=== PATIENT | female | born 1935 | race Caucasian/White ===

== ENCOUNTER → 2017-12-05 | Outpatient (CLI) | payer MEDICARE, OTHER ==
[~2017-12-05] MED LIST: AMLO1TAB PO; APIX2.5T PO; ASCO10004 PO; CHOL200024 PO; DILT120C58 PO; FOLI-17 PO; MAGNESIUM PO; OMNIPAQUE 350 MG/ML, 150 ML BOTTLE ONE; SPIR25TA3 PO; TOFA5TAB PO; TURMERIC PO
== END | disposition home or self-care (01) ==
LOC: CFH 11:01
PROVIDERS: ATTEND Internal Medicine Cardiovascular Disease
DX: J84.10 Pulmonary fibrosis, unspecified (principal); R91.1 Solitary pulmonary nodule; I48.91 Unspecified atrial fibrillation
CPT/HCPCS: 71046; 75572; Q9967

== ENCOUNTER 2017-12-07 06:23 | Observation (INO) | payer MEDICARE, OTHER ==
[2017-12-05 13:13] VITALS: BP 130/68
[~2017-12-07] VITALS: Ht 170.2 cm; Wt 67.0 kg
[~2017-12-07 06:23] MED LIST changes: -ASCO10004 PO; -OMNIPAQUE 350 MG/ML, 150 ML BOTTLE ONE
[2017-12-07] MEDS ORDERED: SODIUM CHLORIDE 0.9% 1,000 ML IV ONE (06:30)
[2017-12-07] MEDS ORDERED: SODIUM CHLORIDE 0.9% 1,000 ML IV SCH (06:40)
[2017-12-07] MEDS ORDERED: ASCO10004 PO (06:59)
[2017-12-07] MEDS ORDERED: HEPARIN 1,000 UNITS/ML, 10ML ONE (07:22)
[2017-12-07] MEDS ORDERED: PROTAMINE SULFATE 10 MG/ML, 5ML ONE (07:22)
[2017-12-07] MEDS ORDERED: LIDOCAINE-MPF 2% ,5ML ONE (07:22)
[2017-12-07] MEDS ORDERED: ISOPROTERENOL 0.2MG/ML, 5ML ONE (07:22)
[2017-12-07] MEDS ORDERED: EPINEPHRINE SYRINGE 0.1 MG/ML, 10ML ONE (07:30)
[2017-12-07] MEDS ORDERED: MIDAZOLAM 1 MG/ML, 2ML ONE (07:39)
[2017-12-07] MEDS ORDERED: FENTANYL PF 100 MCG/2ML ONE (07:39)
[2017-12-07] MEDS ORDERED: DEXAMETHASONE 4 MG/ML, 1ML ONE (07:51)
[2017-12-07] MEDS ORDERED: PROPOFOL 10 MG/ML, 20ML ONE (07:51)
[2017-12-07] MEDS ORDERED: ROCURONIUM 10 MG/ML,10ML ONE (07:51)
[2017-12-07] MEDS ORDERED: ONDANSETRON 2MG/ML, 2ML ONE (07:51)
[2017-12-07] MEDS ORDERED: SUCCINYLCHOLINE 20 MG/ML, 10ML ONE (07:51)
[2017-12-07] MEDS ORDERED: morphine SULFATE 10 MG/ML, 1ML IV PRN (10:30)
[2017-12-07] MEDS ORDERED: ZOLPIDEM 5MG TABLET PO PRN (10:30)
[2017-12-07] MEDS ORDERED: PROMETHAZINE 12.5 MG SUPP PR PRN (10:30)
[2017-12-07] MEDS ORDERED: ACETAMINOPHEN 325 MG TABLET PO PRN ×2 (10:30)
[2017-12-07] MEDS ORDERED: METOCLOPRAMIDE 5 MG/ML, 2ML IV PRN (10:30)
[2017-12-07] MEDS ORDERED: ALBUTEROL SULFATE 2.5 MG/3 ML NPPB PRN (10:30)
[2017-12-07] MEDS ORDERED: LABETALOL 5MG/ML, 20ML IV PRN (10:30)
[2017-12-07] MEDS ORDERED: ONDANSETRON 2MG/ML, 2ML IVPush PRN (10:30)
[2017-12-07] MEDS ORDERED: MIDAZOLAM 1 MG/ML, 2ML IV PRN (10:30)
[2017-12-07] MEDS ORDERED: OXYcodone 5 MG/5 ML ORAL.SOL UDC PO PRN (10:30)
[2017-12-07] MEDS ORDERED: FENTANYL PF 100 MCG/2ML IV PRN (10:30)
[2017-12-07] MEDS ORDERED: MEPERIDINE/PF 25MG/0.5ML IVPush PRN (10:30)
[2017-12-07] MEDS ORDERED: hydrALAzine 20 MG/ML, 1ML IV PRN (10:30)
[2017-12-07] MEDS ORDERED: APIXABAN 5 MG TABLET ONE (10:31)
[2017-12-07] MEDS: APIXABAN 2.5 MG TABLET PO SCH (10:46)
[2017-12-07 11:38] VITALS: BP 123/44
[2017-12-07] MEDS: CHOLECALCIFEROL 1,000 UNIT TABLET PO SCH (12:00)
[2017-12-07] MEDS ORDERED: ATORVASTATIN 10 MG TABLET PO SCH ×2 (12:00→21:00)
[2017-12-07] MEDS ORDERED: AMLODIPINE 5 MG TABLET PO SCH ×2 (12:00→21:00)
[2017-12-07] MEDS: ASCORBIC ACID 500 MG TABLET PO SCH (12:00)
[2017-12-07 14:51] VITALS: BP 98/60
[2017-12-07 18:59] VITALS: BP 108/66
[2017-12-07] MEDS: (Tofacitinib Citrate** (Xeljanz**) 5 MG) HOMEMEDPO SCH (21:11)
[2017-12-08 01:22] VITALS: BP 105/66
[2017-12-08 06:55] VITALS: BP 110/60
[2017-12-08] MEDS: APIXABAN 2.5 MG TABLET PO SCH (08:25)
[2017-12-08] MEDS: ASCORBIC ACID 500 MG TABLET PO SCH (08:26)
[2017-12-08] MEDS: CHOLECALCIFEROL 1,000 UNIT TABLET PO SCH (08:26)
[2017-12-08] MEDS: (Tofacitinib Citrate** (Xeljanz**) 5 MG) HOMEMEDPO SCH (08:26)
[2017-12-08 08:32] VITALS: BP 117/71
[2017-12-08] MEDS ORDERED: SPIRONOLACTONE 25 MG TABLET PO SCH (09:00)
[2017-12-08] MEDS ORDERED: DILTIAZEM 120 MG CAP.ER.24H PO SCH (09:00)
[2017-12-08] MEDS ORDERED: FOLIC ACID 1 MG TABLET PO SCH (09:00)
== END 2017-12-08 10:30 | disposition home or self-care (01) ==
LOC: CACL 06:23 → ORIP 10:05 → 5SO 11:23 → DCLOUNGE 12-08 10:11
PROVIDERS: ADMIT Internal Medicine Cardiovascular Disease; ATTEND Internal Medicine Cardiovascular Disease
DX: I48.4 Atypical atrial flutter (principal); I47.1 Supraventricular tachycardia; E78.5 Hyperlipidemia, unspecified; I10 Essential (primary) hypertension; M06.9 Rheumatoid arthritis, unspecified
CPT/HCPCS: 85347; 93312; 93320; 93325; 93462; 93613; 93621; 93653; 93662; C1730; C1731; C1732; C1759; C1766; C1893; C1894; G0378; J0330; J1100; J1644; J2250; J2405; J2704; J2720; J3010; J3490

== ENCOUNTER 2018-07-14 07:30 | Observation (INO) | payer MEDICARE, OTHER ==
[~2018-07-14] VITALS: Ht 170.2 cm; Wt 65.0 kg
[~2018-07-14 07:30] MED LIST changes: +ASCO10004 PO; -SPIR25TA3 PO; +SPIR25TA5 PO
[2018-07-14] MEDS ORDERED: SODIUM CHLORIDE 0.9% 1,000 ML IV SCH ×2 (08:35→09:00)
[2018-07-14 08:36] VITALS: BP 143/73
[2018-07-14] MEDS ORDERED: PROTAMINE SULFATE 10 MG/ML, 5ML ONE (11:23)
[2018-07-14] MEDS ORDERED: MIDAZOLAM 1 MG/ML, 2ML ONE (11:26)
[2018-07-14] MEDS ORDERED: FENTANYL PF 250 MCG/5ML ONE (11:26)
[2018-07-14] MEDS ORDERED: SUCCINYLCHOLINE 20 MG/ML, 10ML ONE (14:10)
[2018-07-14] MEDS ORDERED: ROCURONIUM 10MG/ML,5ML ONE (14:10)
[2018-07-14] MEDS ORDERED: LIDOCAINE/PF 1%, 30ML ONE (14:25)
[2018-07-14] MEDS ORDERED: ONDANSETRON 2MG/ML, 2ML ONE (14:57)
[2018-07-14] MEDS ORDERED: DEXAMETHASONE 4 MG/ML, 1ML ONE (14:57)
[2018-07-14] MEDS ORDERED: PROPOFOL 10 MG/ML, 20ML ONE (14:57)
[2018-07-14] MEDS ORDERED: ISOPROTERENOL 0.2MG/ML, 5ML ONE (15:39)
[2018-07-14] MEDS ORDERED: ACETAMINOPHEN 325 MG TABLET PO PRN ×2 (17:00→17:30)
[2018-07-14] MEDS ORDERED: ZOLPIDEM 5MG TABLET PO PRN (17:00)
[2018-07-14] MEDS ORDERED: EPHEDRINE 50 MG/ML, 1ML IM PRN (17:30)
[2018-07-14] MEDS ORDERED: MORPHINE SULFATE 4 MG/ML, 1ML IVPush PRN (17:30)
[2018-07-14] MEDS ORDERED: MEPERIDINE/PF 25MG/0.5ML IVPush PRN (17:30)
[2018-07-14] MEDS ORDERED: PROMETHAZINE 25 MG SUPP PR PRN (17:30)
[2018-07-14] MEDS ORDERED: FENTANYL PF 100 MCG/2ML IV PRN (17:30)
[2018-07-14] MEDS ORDERED: OXYcodone 5 MG/5 ML ORAL.SOL UDC PO PRN (17:30)
[2018-07-14] MEDS ORDERED: ONDANSETRON ODT 8 MG PO PRN (17:30)
[2018-07-14] MEDS ORDERED: PROMETHAZINE 12.5 MG SUPP PR PRN (17:30)
[2018-07-14] MEDS ORDERED: DIPHENHYDRAMINE 50 MG/ML, 1ML IVPush PRN (17:30)
[2018-07-14] MEDS ORDERED: MIDAZOLAM 1 MG/ML, 2ML IV PRN (17:30)
[2018-07-14] MEDS ORDERED: ONDANSETRON 2MG/ML, 2ML IV PRN (17:30)
[2018-07-14] MEDS ORDERED: PROMETHAZINE 25 MG/ML, 1ML IV PRN (17:30)
[2018-07-14 19:37] VITALS: BP 145/80
[2018-07-14] MEDS: TEMPLATE NON-FORMULARY MED. (Tofacitinib Citrate** (Xeljanz**) 5 MG) PO SCH (21:00)
[2018-07-14] MEDS ORDERED: ATORVASTATIN 10 MG TABLET PO SCH (21:00)
[2018-07-14] MEDS: APIXABAN 2.5 MG TABLET PO SCH (21:12)
[2018-07-15 01:07] VITALS: BP 106/64
[2018-07-15 07:16] VITALS: BP 119/63
[2018-07-15] MEDS: TEMPLATE NON-FORMULARY MED. (Tofacitinib Citrate** (Xeljanz**) 5 MG) PO SCH (07:49)
[2018-07-15] MEDS ORDERED: FOLIC ACID 1 MG TABLET PO SCH (09:00)
[2018-07-15] MEDS ORDERED: AMLODIPINE 5 MG TABLET PO SCH (09:00)
[2018-07-15] MEDS ORDERED: SPIRONOLACTONE 25 MG TABLET PO SCH (09:00)
[2018-07-15] MEDS ORDERED: CHOLECALCIFEROL 1,000 UNIT TABLET PO SCH (09:00)
[2018-07-15] MEDS ORDERED: TURMERIC 450 MG PO SCH (09:00)
[2018-07-15] MEDS: APIXABAN 2.5 MG TABLET PO SCH (09:49)
== END 2018-07-15 15:08 | disposition home or self-care (01) ==
LOC: CACL 07:30 → ORIP 16:55 → 5SO 18:48
PROVIDERS: ADMIT Internal Medicine Cardiovascular Disease; ATTEND Internal Medicine Cardiovascular Disease
DX: I48.92 Unspecified atrial flutter (principal); I10 Essential (primary) hypertension; M06.9 Rheumatoid arthritis, unspecified; I48.91 Unspecified atrial fibrillation
CPT/HCPCS: 85347; 93306; 93312; 93321; 93325; 93462; 93613; 93621; 93623; 93653; 93655; 93662; C1730; C1731; C1732; C1759; C1766; C1893; C1894; G0378; J0330; J1100; J1642; J2250; J2405; J2704; J2720; J3010; J3490